=== PATIENT | female | born 1985 | race Caucasian/White ===

== ENCOUNTER 2016-05-09 09:24 | Inpatient (IN) | payer OTHER ==
[2016-05-09] VITALS (22 sets, daily range): BP systolic 93–136; BP diastolic 52–80
[~2016-05-09] VITALS: Ht 170.2 cm; Wt 95.0 kg
[~2016-05-09 09:24] MED LIST: ASPIRIN325 MG PO; BENADRYL25 MG PO; PRENATAL TABLE1 EAC3 PO; PROBIOTIC1 EAC3 PO; TYLENOL EXTRA500 MG PO
[2016-05-09 10:09] LABS: EOSINOPHIL (%) 0.5 % (0-5); EOSINOPHIL COUNT 0.1 K/uL (0-0.3); HEMATOCRIT 34.9 % (36.0-46.0); IMMATURE GRANULOCYTE (%) 0.9 % (0.0-0.7); IMMATURE GRANULOCYTE COUNT 0.1 K/uL; LYMPHOCYTE COUNT 1.9 K/uL (1.0-2.8); MCH 31.6 PG (29.0-34.0); MCHC 33.8 G/DL (30.0-36.0); MCV 93.6 FL (83-99); MEAN PLAT.VOLUME 11.3 uM^3 (9.5-12.4); MONOCYTE (%) 7.7 % (3-12); MONOCYTE COUNT 0.8 K/uL (0-0.8); NEUTROPHIL (%) 73.8 % (45-76); PLATELET COUNT 137 K/uL (156-360); RBC DIS.WIDTH-CV 12.6 % (11.8-14.6); RBC DIS.WIDTH-SD 43.6 % (39-53); RED BLOOD COUNT 3.73 M/uL (3.80-5.20); WHITE BLOOD COUNT 10.9 K/uL (4.1-10.2)
[2016-05-10] VITALS (9 sets, daily range): BP systolic 101–141; BP diastolic 55–70
[2016-05-10] MEDS ORDERED: MOTRIN800 MG PO (00:16)
[2016-05-11 07:37] VITALS: BP 110/59
== END 2016-05-11 12:25 | disposition home or self-care (01) | DRG 775 ==
LOC: LDRP-OP 09:24 → 2WEST 09:25
PROVIDERS: Nurse Practitioner
DX: O99.824 Streptococcus B carrier state complicating childbirth (principal); R19.7 Diarrhea, unspecified; E66.9 Obesity, unspecified; O99.214 Obesity complicating childbirth; Z68.32 Body mass index [BMI] 32.0-32.9, adult; O69.81X0 Labor and delivery complicated by cord around neck, without compression, not applicable or unspecified; Z3A.39 39 weeks gestation of pregnancy; Z37.0 Single live birth
CPT/HCPCS: 85025; C1755; J2540; J3010; J7120